=== PATIENT | male | born 1985 | race American Indian/Alaskan Native ===

== ENCOUNTER 2021-04-27 08:09 | Emergency (ER) | payer OTHER ==
[2021-04-27] MEDS ORDERED: Lidocaine 1% 50 ML MDV INJECT ONE (08:15)
[2021-04-27] MEDS ORDERED: Diphtheria,Pertussis(Acell),Tetanus Vaccine 0.5 ML Syringe IM ONE (08:15)
[2021-04-27] MEDS ORDERED: Cephalexin 500 MG Cap PO ONE (09:59)
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
== END 2021-04-27 10:39 | disposition home or self-care (01) ==
LOC: JD.ED 08:09
DX: S51.012A Laceration without foreign body of left elbow, initial encounter (principal); Z23 Encounter for immunization; V69.9XXA Occupant (driver) (passenger) of heavy transport vehicle injured in unspecified traffic accident, initial encounter
CPT/HCPCS: 12004; 90471; 90715; 99284; J2001; 12034